=== PATIENT | female | born 1935 | race Caucasian/White ===

== ENCOUNTER → 2017-10-04 09:51 | Oncology outpatient (ONC) | payer MEDICARE, OTHER, SELFPAY ==
[2017-10-04 10:37] VITALS: BP 135/56; PULSE 79; RESP 15; TEMP 36.5; O2SAT 97
--- NOTE | 2017-10-04 11:25 | P.PNONC_ITS ---
Assessment and Plan (1) Ovarian cancer on left Problem details: 1. 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 Exploratory laparotomy, modified posterior exenteration, KIM/BSO, omentectomy , bilateral ureterolysis, rectosigmoid resection with primary reanastomosis on 07/25/2012. 3. Adjuvant Carbo(AUC 6)/Paclitaxol x 6 cycles, completed 03/22/2013 I reviewed the tumor marker level with the patient. It has been within the normal range. Clinically no new abdominal pain or new onset musculoskeletal pain or other symptoms suggestive of possible recurrence or metastasis. Patient is adamant that she would not come back to the [facility] for continued follow-up. She would like to continue to follow up with her primary care provider Dr. Mujica. I called Dr. Mujica and updated her on the continued follow-up as far as the ovarian cancer is concerned. I advised that we check the ovarian marker at least once a year. (2) Hypochromic microcytic anemia I also reviewed the laboratory results from August 17, 2017. The lab result clearly showed microcytic hypochromic anemia suspicious for iron deficiency. Patient herself is not aware of the anemia and was mildly upset about the news. I offered that we can continue the workup here at [facility] as far as the etiology and treatment are concerned. I explained briefly to her that the iron deficiency anemia usually is due to gastrointestinal bleeding and/or malabsorption. Workup will include possible colonoscopy and possible upper endoscopy. Patient apparently was very surprised about the findings of anemia. Once again she does not want to continue the workup here at [facility] because of transporting difficulties. She preferred to follow up with her primary care provider Dr. Mujica for further work-up. She said that she has an appointment with Dr. Mujica in 2 weeks. During my phone call with Dr. Mujica, I also updated hard on the findings of iron deficiency anemia and the need for continued workup. (3) CKD (chronic kidney disease) stage 3, GFR 30-59 ml/min I also talked with her about the laboratory results indicated chronic kidney disease. The etiology is not certain at this moment. Again patient wants to continue follow-up with Dr. Mujica. During my talk with Dr. Shegill, I updated on the findings of increasing serum creatinine level. I talked with the patient that the chronic kidney disease might also be contributing to some extent to the anemia. (4) History of GI bleed It is documented in the medical records that the patient has had history gastrointestinal bleeding. This further suggests that workup for gastrointestinal bleeding is necessary for the findings of microcytic hypochromic anemia. PN -Subjective Interval history: IDENTIFICATION AND REASON FOR TODAY'S VISIT 82-year-old female with history of ovarian cancer presents here for scheduled follow-up. HISTORY OF PRESENT ILLNESS Mrs. Tawnya Richards is a 82-year-old white female. She presented in February of 2012 with a change in the bowel movement. She however delayed the recommended colonoscopy to June 2012 out of personal reasons. The colonoscopy showed a large mass in the rectum. Biopsy showed the diagnosis of poorly differentiated adenocarcinoma. Imaging studies (CT/MRI/US) showed a large mass filling the majority of the pelvis, 11.7 x 8.6 cm, with a complex left adnexal cyst, appearing to invade the rectum and the myometrium. CA 125 was 247. CEA was 3.4. On July 25, 2012 patient underwent exploratory laparotomy, modified posterior exenteration, KIM/BSO, omentectomy, bilateral ureterolysis, rectosigmoid resection with primary reanastomosis. The pathology findings were high-grade serous carcinoma involving the left ovary, a 4 cm mass; uterine serosal surface and myometrium, 7.5 cm mass; rectosigmoid, 11.0 cm mass; omentum 2.0 cm mass; right fallopian tube and ovary with no neoplasm; uterus with multiple leiomyomata; inactive endometrium and cervix; focal serosa endometriosis, FIGO stage IIIC. The high-grade serous carcinoma was predominantly centered on the left adnexa with no residual left fallopian tube identified. Postoperatively patient received adjuvant chemotherapy with carboplatin and paclitaxel for a total of 6 cycles completed March 22, 2013. Thereafter patient has been on active surveillance without evidence of disease recurrence or metastasis. INTERIM EVENTS THROUGH TODAY Patient was last seen by Dr. Lisandro Regan on March 06, 2017. Since then, clinically patient reported no significant new changes. Upon further questioning patient does report that she has no appetite at all and she is not hungry. Her weight has been stable. Patient also reported significant fatigue. She reports no shortness of breath and no chest pain. No nausea no vomiting. No diarrhea or constipation. She denies bright red blood per rectum and denies any black stool. Patient has arthritic joint pain including bilateral knee pain. 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 Patient said that the last colonoscopy was almost 3-4 years ago and according to patient ?it was normal?. Patient underwent laboratory tests at outside hospital on August 17, 2017. And the laboratory results showed that the white cell count 4.6, hemoglobin 8.0, hematocrit 26.8, MCV 71.5, MCH 21.3, MCHC 29.9, RDW 19.7, platelets 240, sodium 141, potassium 3.6, chloride 106, carbon dioxide 27, anion gap 8, glucose level at 95, BUN 27, creatinine level 1.31, total protein 7.0, albumin 3.7, globulin 3.3, calcium 9.1, total bilirubin 0.5, alk-phos 84, ALT 15, AST 20, CA-125 12,. - Patient Self-Reported Symptoms SR Constitution: Fatigue/Malaise SR Musculoskeletal issues: Joint pain or swelling, Muscle pain or cramps, Difficulty walking Results - Labs Please see my documentation in the interim events for the lab report. - Imaging Additional studies: Procedures Insertion of intraocular lens prosthesis at time of cataract extraction, one- stage (06/08/12) Insertion of totally implantable vascular access device [VAD] (09/14/12) Other soft tissue x-ray of chest wall (09/14/12) Phacoemulsification and aspiration of cataract (06/08/12) Transfusion of packed cells (03/24/13) Home Medications and Allergies Home Medications Medication Instructions Recorded Confirmed Type aspirin 81 mg PO QDAY #0 10/12/12 10/04/17 History atorvastatin [Lipitor] 40 mg PO QDAY #0 10/12/12 10/04/17 History triamterene-hydrochlorothiazid 1 mg PO QAM #0 10/12/12 10/04/17 History [Dyazide] gabapentin [Neurontin] 300 mg PO QDAY #0 10/28/15 10/04/17 History nifedipine [Procardia XL] 30 mg PO QDAY #0 10/28/15 10/04/17 History potassium chloride 20 meq PO QDAY #0 10/28/15 10/04/17 History Allergies Allergy/AdvReac Type Severity Reaction Status Date / Time JANNETH Inhibitors Allergy Severe SEVERE Verified 10/04/17 10:46 [JANNETH INHIBITORS] COUGH bupropion [BUPROPION] AdvReac Unknown LIGHT Verified 10/04/17 10:46 HEADED Exam Vital signs: Last Vital Signs Temp 97.7 F 10/04/17 10:37 Pulse 79 10/04/17 10:37 Resp 15 10/04/17 10:37 BP 135/56 H 10/04/17 10:37 Pulse Ox 97 10/04/17 10:37 - Constitutional positive no acute distress, positive average body habitus, positive chronically ill appearing, positive cooperative Comments: She is mildly agitated because of the new information about anemia, and chronic kidney disease. - Routine HEENT Exam Head: Present: normocephalic, atraumatic Eye: Present: EOMI, PERRL, normal accommodation. Absent: conjunctival icterus, scleral injection ENT: Present: mucous membranes moist - Routine Neck Exam Present: supple, full ROM, JVD. Absent: lymphadenopathy, thyromegaly - Routine Chest/Breast/Axilla Exam Axillae: Absent: lymphadenopathy - Routine Respiratory Exam Present: Clear to auscultation bilaterally. Absent: rales, respiratory distress , rhonchi, stridor, wheezes, crackles - Routine Cardiovascular Exam Present: RRR, S1, S2, murmur. Absent: gallop, rubs Comments: Grade 2/6 systolic murmur heard over the aortic area. - Routine Abdominal Exam Present: soft, normoactive bowel sounds. Absent: tenderness, distended, mass Palpation/Percussion: Absent: hepatomegaly, splenomegaly - Routine Extremities Exam Present: full ROM. Absent: cyanosis, clubbing, edema, joint swelling - Routine Back/Spine Exam Back/Spine: Present: full ROM Comments: Patient walks rather slowly. Seems to be somewhat unsteady. - Routine Neurological Exam Present: alert, oriented X3, CN II-XII intact. Absent: sensory deficit, motor deficit - Routine Psychiatric Exam Present: normal affect, normal thought process, cooperative, good insight, good judgment
== END ==
LOC: ONC 09:59
PROVIDERS: Visit Provider Nurse Practitioner Gerontology
DX: Z08 Encounter for follow-up examination after completed treatment for malignant neoplasm (principal); D50.9 Iron deficiency anemia, unspecified; N18.3 Chronic kidney disease, stage 3 (moderate); Z85.43 Personal history of malignant neoplasm of ovary; Z85.048 Personal history of other malignant neoplasm of rectum, rectosigmoid junction, and anus
CPT/HCPCS: 99215